=== PATIENT | male | born 1955 | race Caucasian/White ===

== ENCOUNTER → 2019-01-09 | Outpatient (CLI) | payer OTHER | LOC: COL.RAD 09:45 → EDSEX 09:45 → COL.RAD 10:04 | DX: M48.061 Spinal stenosis, lumbar region without neurogenic claudication (principal); M51.16 Intervertebral disc disorders with radiculopathy, lumbar region; M46.82 Other specified inflammatory spondylopathies, cervical region; M47.24 Other spondylosis with radiculopathy, thoracic region | CPT/HCPCS: A9585 ==